=== PATIENT | male | born 1955 | race Hispanic/Latino ===

== ENCOUNTER → 2022-04-14 | Outpatient (CLI) | payer BC | LOC: RAD 15:39 | PROVIDERS: ATTEND Internal Medicine | DX: M86.8X8 Other osteomyelitis, other site (principal) | CPT/HCPCS: 71101 ==

== ENCOUNTER → 2022-07-22 | Outpatient (CLI) | payer BC ==
[~2022-07-22] MED LIST: ELIQUIS5 MG PO; PROPOFOL IV EMULSION 50 ML IV ONE
== END | disposition home or self-care (01) ==
LOC: OR 08:00 → RAD 08:00 → EDSTATUS 10:30
PROVIDERS: ATTEND Internal Medicine Gastroenterology
DX: R13.10 Dysphagia, unspecified (principal); Z53.9 Procedure and treatment not carried out, unspecified reason